=== PATIENT | female | born 1990 | race Caucasian/White ===

== ENCOUNTER 2019-12-01 09:31 | Emergency (ER) | payer MEDICAID ==
[~2019-12-01] VITALS: Ht 170.2 cm; Wt 77.3 kg
[2019-12-01] MEDS ORDERED: PENI500T2 PO (10:43)
[2019-12-01] MEDS ORDERED: ibuprofen tablet 400 MG TABLET PO ONE (10:45)
[2019-12-01 10:55] VITALS: BP 124/79
[2019-12-02] MEDS ORDERED: HYDR-3965 PO (01:50)
== END 2019-12-01 11:04 | disposition home or self-care (01) ==
LOC: ER 09:32
DX: K04.7 Periapical abscess without sinus (principal); H61.21 Impacted cerumen, right ear; Z79.899 Other long term (current) drug therapy
CPT/HCPCS: 99283

== ENCOUNTER 2019-12-02 01:10 | Emergency (ER) | payer MEDICAID ==
[~2019-12-02] VITALS: Ht 170.2 cm; Wt 78.2 kg
[~2019-12-02 01:10] MED LIST: PENI500T2 PO
[2019-12-02 01:12] VITALS: BP 114/80
[2019-12-02] MEDS ORDERED: HYDR-3965 PO (01:50)
[2019-12-02] MEDS ORDERED: HYDROcodone/acetaminophen 5mg/325mg tablet PO ONE (01:50)
== END 2019-12-02 02:15 | disposition home or self-care (01) ==
LOC: ER 01:10
DX: K08.89 Other specified disorders of teeth and supporting structures (principal); F17.200 Nicotine dependence, unspecified, uncomplicated; Z79.2 Long term (current) use of antibiotics
CPT/HCPCS: 64400; 99283; 99284

== ENCOUNTER 2020-04-10 20:57 | Emergency (ER) | payer MEDICAID ==
[~2020-04-10] VITALS: Ht 170.2 cm; Wt 81.8 kg
[2020-04-10 21:42] LABS: BASOPHILS % (AUTO) 0.4 % (0-1); EOSINOPHILS # (AUTO) 0.1 X10'3 (0-0.9); HEMOGLOBIN 13.2 g/dl (12.0-16.0); LYMPHOCYTES # (AUTO) 2.7 X10'3 (1.1-4.8); LYMPHOCYTES % (AUTO) 32.1 % (21-51); MEAN CORPUSCULAR HEMOGLOBIN 30.5 PG (27.0-31.0); MEAN CORPUSCULAR HGB CONC 33.9 g/dL (33.0-36.5); MEAN CORPUSCULAR VOLUME 89.9 FL (78-98); MEAN PLATELET VOLUME 7.6 FL (7.4-10.4); MONOCYTES # (AUTO) 0.5 X10'3 (0-0.9); NEUTROPHILS # (AUTO) 5.1 X10'3 (1.8-7.7); NEUTROPHILS % (AUTO) 60.5 % (42-75); PLATELET COUNT 384 X10'3 (140-440); RED BLOOD COUNT 4.34 X10'6 (4.20-5.60); RED CELL DISTRIBUTION WIDTH 14.7 % (11.5-14.5); WHITE BLOOD COUNT 8.4 X10'3 (4.5-11.0)
[2020-04-10] MEDS ORDERED: azithromycin 250mg tablet PO ONE (21:45)
[2020-04-10] MEDS ORDERED: CefTRIAXone 250MG IM Kit w/LIDOcaine IM ONE (21:45)
[2020-04-10 21:59] LABS: ALANINE AMINOTRANSFERASE 38 U/L (12-78); ALBUMIN 3.9 G/DL (3.4-5.0); ALBUMIN/GLOBULIN RATIO 0.9 (1.1-1.5); ALKALINE PHOSPHATASE 123 IU/L (46-116); ANION GAP 8 (8-16); ASPARTATE AMINO TRANSFERASE 30 U/L (10-37); BILIRUBIN,TOTAL 0.3 MG/DL (0.1-1.0); BLOOD UREA NITROGEN 11 MG/DL (7-18); CALCIUM 9.4 MG/DL (8.5-10.1); CHLORIDE 104 MMOL/L (99-107); CREATININE 0.58 MG/DL (0.40-0.90); GLUCOSE 101 MG/DL (70-104); POTASSIUM 3.3 MMOL/L (3.5-5.1); SODIUM 140 MMOL/L (135-145); TOTAL CARBON DIOXIDE 27.8 MMOL/L (24-32); TOTAL PROTEIN 8.2 G/DL (6.4-8.2); eGFR > 90 ML/MIN
--- NOTE | 2020-04-10 22:20 | NUR ---
assisted provider with pelvic examine, wet mount sent to lab,
[2020-04-10] MEDS ORDERED: METR-159 PO (22:37)
[2020-04-10 22:49] LABS: CLARITY,URINE CLEAR (Clear); COLOR,URINE YELLOW (Yellow); GLUCOSE, URINE NEGATIVE (Neg); KETONES,URINE NEGATIVE (Neg); LEUKOCYTE ESTERASE ,URINE MODERATE (Neg); NITRITES, URINE NEGATIVE (Neg); OCCULT BLOOD,URINE MODERATE (Neg); PROTEIN,URINE TRACE mg/dl (Neg); UROBILINOGEN,URINE 0.2 E.U/dL (0.2-1.0)
[2020-04-10 22:57] LABS: UA COLLECTION TYPE CLN CATCH MIDSTREAM
[2020-04-10 23:09] VITALS: BP 109/66
[2020-04-10 23:09] LABS: BACTERIA,URINE 3+ /HPF (Neg); MUCUS STRANDS MODERATE /LPF (Neg); SQUAMOUS EPITHELIAL CELL,UR MODERATE /LPF (FEW); WBC,URINE TNTC /HPF (0-4)
--- NOTE | 2020-04-14 17:18 | NUR ---
Attempted to contact patient to change antibiotic after receiving final ua c&s report. Unable to contact patient at both numbers listed.
== END 2020-04-10 23:10 | disposition home or self-care (01) ==
LOC: ER 20:57
DX: N76.0 Acute vaginitis (principal); B96.89 Other specified bacterial agents as the cause of diseases classified elsewhere; N39.0 Urinary tract infection, site not specified
CPT/HCPCS: 36415; 80053; 81001; 85025; 87077; 87088; 87186; 87210; 87491; 87591; 96372; 99284; J0696; Q0112; 99283

== ENCOUNTER 2020-06-30 20:50 | Emergency (ER) | payer MEDICAID ==
[~2020-06-30] VITALS: Ht 170.2 cm; Wt 81.0 kg
[2020-06-30 21:21] LABS: URINE HCG NEGATIVE (NEG)
[2020-06-30 21:25] LABS: CLARITY,URINE CLOUDY (Clear); COLOR,URINE YELLOW (Yellow); GLUCOSE, URINE NEGATIVE (Neg); KETONES,URINE NEGATIVE (Neg); LEUKOCYTE ESTERASE ,URINE LARGE (Neg); NITRITES, URINE NEGATIVE (Neg); OCCULT BLOOD,URINE SMALL (Neg); PROTEIN,URINE TRACE mg/dl (Neg); UROBILINOGEN,URINE 0.2 E.U/dL (0.2-1.0)
[2020-06-30 21:35] LABS: UA COLLECTION TYPE CLN CATCH MIDSTREAM
[2020-06-30 21:37] LABS: BASOPHILS % (AUTO) 0.4 % (0-1); EOSINOPHILS # (AUTO) 0.1 X10'3 (0-0.9); EOSINOPHILS % (AUTO) 1.2 % (0-6); HEMATOCRIT 41.4 % (35.0-45.0); HEMOGLOBIN 13.8 g/dl (12.0-16.0); LYMPHOCYTES # (AUTO) 2.5 X10'3 (1.1-4.8); LYMPHOCYTES % (AUTO) 26.4 % (21-51); MEAN CORPUSCULAR HEMOGLOBIN 30.3 PG (27.0-31.0); MEAN CORPUSCULAR HGB CONC 33.3 g/dL (33.0-36.5); MEAN CORPUSCULAR VOLUME 91.1 FL (78-98); MEAN PLATELET VOLUME 7.5 FL (7.4-10.4); MONOCYTES # (AUTO) 0.6 X10'3 (0-0.9); MONOCYTES % (AUTO) 5.9 % (2-12); NEUTROPHILS # (AUTO) 6.2 X10'3 (1.8-7.7); NEUTROPHILS % (AUTO) 66.1 % (42-75); PLATELET COUNT 420 X10'3 (140-440); RED BLOOD COUNT 4.54 X10'6 (4.20-5.60); RED CELL DISTRIBUTION WIDTH 14.2 % (11.5-14.5); WHITE BLOOD COUNT 9.4 X10'3 (4.5-11.0)
[2020-06-30 21:42] LABS: BACTERIA,URINE 2+ /HPF (Neg); MUCUS STRANDS FEW /LPF (Neg); SQUAMOUS EPITHELIAL CELL,UR MODERATE /LPF (FEW); WBC,URINE TNTC /HPF (0-4)
[2020-06-30 21:48] LABS: ALANINE AMINOTRANSFERASE 26 U/L (12-78); ALBUMIN 3.9 G/DL (3.4-5.0); ALBUMIN/GLOBULIN RATIO 0.9 (1.1-1.5); ALKALINE PHOSPHATASE 119 IU/L (46-116); ANION GAP 10 (8-16); ASPARTATE AMINO TRANSFERASE 17 U/L (10-37); BILIRUBIN,TOTAL 0.4 MG/DL (0.1-1.0); BLOOD UREA NITROGEN 9 MG/DL (7-18); BUN/CREATININE RATIO 10.8 (6.6-38.0); CALCIUM 9.4 MG/DL (8.5-10.1); CHLORIDE 103 MMOL/L (99-107); CREATININE 0.83 MG/DL (0.40-0.90); GLUCOSE 99 MG/DL (70-104); LIPASE 86 U/L (73-393); POTASSIUM 3.5 MMOL/L (3.5-5.1); SODIUM 141 MMOL/L (135-145); TOTAL CARBON DIOXIDE 28.1 MMOL/L (24-32); TOTAL PROTEIN 8.1 G/DL (6.4-8.2); eGFR 81 ML/MIN
[2020-07-01] MEDS ORDERED: oxyCODONE/APAP 10/325mg tablet PO ONE (00:20)
[2020-07-01] MEDS ORDERED: iohexol 300mg/ml 100ml inj. ONE (00:27)
[2020-07-01] MEDS ORDERED: oxyCODONE IR 5mg (immed. release) tablet PO ONE (02:05)
[2020-07-01] MEDS ORDERED: ketorolac tromethamine 15mg/ml inj. IM ONE (02:05)
[2020-07-01] MEDS ORDERED: CefTRIAXone/D5W-Rocephin 1gm 50 ML IV ONE (02:05)
[2020-07-01] MEDS ORDERED: ketorolac trometh. 30mg/ml inj. IV ONE (02:30)
[2020-07-01] MEDS ORDERED: NAPR500T6 PO (04:37)
[2020-07-01] MEDS ORDERED: CEFD300C3 PO (04:37)
[2020-07-01 05:38] VITALS: BP 96/47
== END 2020-07-01 05:33 | disposition home or self-care (01) ==
LOC: ER 20:51
DX: N20.0 Calculus of kidney (principal); N39.0 Urinary tract infection, site not specified; R10.9 Unspecified abdominal pain; F17.200 Nicotine dependence, unspecified, uncomplicated; F15.90 Other stimulant use, unspecified, uncomplicated; Z79.899 Other long term (current) drug therapy
CPT/HCPCS: 36415; 74177; 76830; 76856; 80053; 81001; 81025; 83690; 85025; 87077; 87088; 87186; 87210; 93976; 96374; 96375; 99285; J0696; J1885; Q9967

== ENCOUNTER 2020-07-01 21:16 | Emergency (ER) | payer MEDICAID ==
[~2020-07-01] VITALS: Ht 170.2 cm; Wt 92.8 kg
[~2020-07-01 21:16] MED LIST changes: +CEFD300C3 PO; +NAPR500T6 PO; -PENI500T2 PO
[2020-07-01 21:33] VITALS: BP 114/63
--- NOTE | 2020-07-01 22:15 | NUR ---
pt was given discharge papers, but asked for ibuprofen first. spoke with md who was going to order ibuprofen dose. pt did not want to wait, asked for prescription for ibuprofen to be called to [facility] on [address] in [place]. nurse attempted to call in prescription after ok'd by md, no answer or voicemail available at the number for the pharmacy she chose, was unable to call prescription
--- NOTE | 2020-07-01 22:23 | NUR ---
prescription to be called, per dr ramsay, ibuprofen 800mg q 8 hrs prn #[id number].
== END 2020-07-01 22:05 | disposition home or self-care (01) ==
LOC: ER 21:17
DX: R10.32 Left lower quadrant pain (principal); N39.0 Urinary tract infection, site not specified; N20.0 Calculus of kidney; Z79.2 Long term (current) use of antibiotics; Z79.899 Other long term (current) drug therapy
CPT/HCPCS: 99281

== ENCOUNTER 2023-07-15 15:09 | Emergency (ER) | payer MEDICAID ==
[~2023-07-15] VITALS: Ht 175.3 cm; Wt 79.3 kg
[~2023-07-15 15:09] MED LIST changes: -CEFD300C3 PO
[2023-07-15 15:17] VITALS: TEMP 97.7
[2023-07-15 15:57] LABS: BILIRUBIN,URINE NEGATIVE (Neg); CLARITY,URINE CLOUDY (Clear); COLOR,URINE YELLOW (Yellow); GLUCOSE, URINE NEGATIVE (Neg); KETONES,URINE NEGATIVE (Neg); LEUKOCYTE ESTERASE ,URINE LARGE (Neg); NITRITES, URINE NEGATIVE (Neg); OCCULT BLOOD,URINE MODERATE (Neg); PROTEIN,URINE TRACE mg/dl (Neg); UROBILINOGEN,URINE 0.2 E.U/dL (0.2-1.0)
[2023-07-15 15:58] LABS: UA COLLECTION TYPE CLN CATCH MIDSTREAM; URINE HCG NEGATIVE (NEG)
[2023-07-15 16:13] LABS: SQUAMOUS EPITHELIAL CELL,UR MODERATE /LPF (FEW)
[2023-07-15 16:14] LABS: BACTERIA,URINE 2+ /HPF (Neg); WBC CLUMPS,URINE MANY /HPF (NEGATIVE); WBC,URINE TNTC /HPF (0-4)
[2023-07-15 19:16] LABS: BASOPHILS % (AUTO) 0.3 % (0-1); EOSINOPHILS # (AUTO) 0.2 X10'3 (0-0.9); EOSINOPHILS % (AUTO) 2.5 % (0-6); HEMATOCRIT 38.2 % (35.0-45.0); HEMOGLOBIN 12.4 g/dl (12.0-16.0); LYMPHOCYTES # (AUTO) 2.6 X10'3 (1.1-4.8); LYMPHOCYTES % (AUTO) 43.5 % (21-51); MEAN CORPUSCULAR HEMOGLOBIN 27.3 PG (27.0-31.0); MEAN CORPUSCULAR HGB CONC 32.4 g/dL (33.0-36.5); MEAN CORPUSCULAR VOLUME 84.2 FL (78-98); MEAN PLATELET VOLUME 7.5 FL (7.4-10.4); MONOCYTES # (AUTO) 0.3 X10'3 (0-0.9); MONOCYTES % (AUTO) 5.5 % (2-12); NEUTROPHILS # (AUTO) 2.9 X10'3 (1.8-7.7); NEUTROPHILS % (AUTO) 48.2 % (42-75); PLATELET COUNT 412 X10'3 (140-440); RED BLOOD COUNT 4.54 X10'6 (4.20-5.60); RED CELL DISTRIBUTION WIDTH 17.6 % (11.5-14.5)
[2023-07-15 19:31] LABS: ALANINE AMINOTRANSFERASE 25 U/L (12-78); ALBUMIN 3.3 G/DL (3.4-5.0); ALBUMIN/GLOBULIN RATIO 0.8 (1.1-1.5); ALKALINE PHOSPHATASE 110 IU/L (46-116); ANION GAP 8 (8-16); ASPARTATE AMINO TRANSFERASE 27 U/L (10-37); BILIRUBIN,TOTAL 0.2 MG/DL (0.1-1.0); BLOOD UREA NITROGEN 12 MG/DL (7-18); BUN/CREATININE RATIO 15.4 (10.0-20.0); CALCIUM 8.7 MG/DL (8.5-10.1); CHLORIDE 105 MMOL/L (99-107); CREATININE 0.78 MG/DL (0.40-0.90); GLUCOSE 103 MG/DL (70-104); LIPASE 22 U/L (16-77); POTASSIUM 3.8 MMOL/L (3.5-5.1); SODIUM 141 MMOL/L (135-145); TOTAL CARBON DIOXIDE 28.2 MMOL/L (24-32); TOTAL PROTEIN 7.6 G/DL (6.4-8.2); eCRCL 107 ML/MIN; eGFR 85 ML/MIN
[2023-07-15] MEDS ORDERED: SULF1TAB48 PO (20:03)
[2023-07-15 20:10] VITALS: BP 120/90; PULSE 83; O2SAT 97
[2023-07-15] MEDS ORDERED: ketorolac trometh inj. 60 MG/2 ML VIAL IM ONE (20:10)
[2023-07-15] MEDS ORDERED: HYDROcodone/acetaminophen 10/325mg tab PO ONE (20:10)
[2023-07-15] MEDS ORDERED: ondansetron 4mg rapidly disintigrating tab PO ONE (20:10)
[2023-07-15] MEDS ORDERED: HYDR-3965 PO ×3 (20:17→20:37)
[2023-07-15 20:46] VITALS: RESP 16
== END 2023-07-15 20:50 | disposition home or self-care (01) ==
LOC: ER 15:09
DX: N39.0 Urinary tract infection, site not specified (principal); N20.0 Calculus of kidney; R31.9 Hematuria, unspecified; Z79.899 Other long term (current) drug therapy
CPT/HCPCS: 36415; 74176; 80053; 81001; 81025; 83690; 85025; 87088; 96372; 99285; J1885